=== PATIENT | male | born 1955 | race Caucasian/White ===

== ENCOUNTER 2018-11-20 10:19 | Inpatient (IN) | payer OTHER ==
[~2018-11-20] VITALS: Ht 182.9 cm; Wt 90.7 kg
[2018-11-20 10:19] VITALS: BP 101/37
[2018-11-20] MEDS ORDERED: BENICAR20 MG PO (10:33)
[2018-11-20] MEDS ORDERED: COLESTIPOL HCL1 G1 PO ×2 (10:34→14:14)
[2018-11-20] MEDS ORDERED: FLOMAX0.4 MG PO (10:34)
[2018-11-20] MEDS ORDERED: FINASTERIDE5 MG PO (10:34)
[2018-11-20] MEDS ORDERED: B12INJ IM (10:34)
[2018-11-20] MEDS ORDERED: FISH OIL 1,001000 M2 PO (10:35)
[2018-11-20] MEDS ORDERED: VITAMIN D1000 UNI1 PO (10:35)
[2018-11-20] MEDS ORDERED: CENTRUM SILVER1 EAC2 PO (10:36)
[2018-11-20 10:55] LABS: ABSOLUTE NEUTROPHILS 6.2 thou/uL (1.4-8.2); BASOPHILS 0.4 % (0.0-2.0); EOSINOPHILS 0.8 % (0.0-3.0); HEMATOCRIT 41.3 % (42.0-52.0); HEMOGLOBIN 14.1 gm/dL (14.0-18.0); LYMPHOCYTES 12.2 % (24.0-44.0); MCH 33.7 pg (26.0-34.0); MCHC 34.2 g/dL (28.0-37.0); MCV 98.5 fL (80.0-100.0); MONOCYTES 4.2 % (1.0-8.0); PLATELET COUNT 170 thou/uL (150-400); POLYS 82.4 % (36.0-66.0); RBC 4.19 mil/uL (4.50-6.00); RDW 13.2 % (10.5-14.5); WBC 7.6 thou/uL (4.0-11.0)
[2018-11-20 11:02] LABS: ANION GAP 10 mmol/L (7-16); BUN 19 mg/dL (7-18); CALCIUM 9.1 mg/dL (8.5-10.1); CHLORIDE 106 mmol/L (98-107); CO2 24 mmol/L (21-32); CREATININE 1.6 mg/dL (0.7-1.3); GLUCOSE 141 mg/dL (74-106); POTASSIUM 4.9 mmol/L (3.5-5.1); SODIUM 140 mmol/L (136-145)
[2018-11-20 11:11] LABS: ALBUMIN 3.1 g/dL (3.4-5.0); SGOT 13 U/L (15-37); SGPT 16 U/L (30-65); TOTAL BILIRUBIN 0.4 mg/dL (<0.1-1.0); TOTAL PROTEIN 6.4 g/dL (6.4-8.2); TROPONIN-I <0.06 ng/mL (<0.06)
--- NOTE | 2018-11-20 13:53 | NUR ---
PHARMACIST AT BEDSIDE COMPLETING MED RECONCILIATION.
--- NOTE | 2018-11-20 15:02 | EKG ---
[address] [address] ELECTROCARDIOGRAM REPORT Name: MELITON PARKINSON Room #: 170-23 ADM IN M.R.#: [id number] ������������������ Admission: 11/20/18 ������������������ Attend Phys: Esteban Reis MD Discharge: ������������������ Date of : 57 Report #: [id number] ����������������������������������������������������������������� [id number] THIS REPORT FOR: //name// [facility] ED Test Date: 2018-11-20 Test Time: 10:27:46 Pat Name: MELITON PARKINSON Department: Room: 170 Gender: M Maturity Checker: FRITZ : 1955 Requested By: Freddy Killian Order Number: [id number] MD: Omi Beltran Measurements Intervals [place] Rate: 57 P: [place]: QRS: -7 QRSD: 150 T: 41 QT: 450 QTc: 439 Interpretive Statements Sinus bradycardia. Right bundle branch block No previous ECG available for comparison Electronically Signed On 11-20-2018 15:02:26 TRANSCRIPT CLERK by Omi Beltran [email or web address] ��������������������������������������������� <ELECTRONICALLY SIGNED> ���������������������������������������� By: Omi Beltran MD ��������������������������������������������� 11/20/18 1502 1027 26 Omi Beltran MD /UMER
[2018-11-20 16:29] VITALS: BP 114/63
[2018-11-20 17:02] VITALS: BP 119/68
[2018-11-20 17:10] VITALS: BP 143/63
--- NOTE | 2018-11-20 19:46 | NUR ---
PATIENT TO ROOM AT 1730. ORIENTED X 4. NO COMPLAINTS OF PAIN OR NAUSEA. LOW FALL RISK. RA. WILL GET STRESS TEST IN AM AND THEN POSSIBLE DISCHARGE HOME. SR WITH BBB
[2018-11-20 19:53] VITALS: BP 137/70
[2018-11-20 23:07] LABS: GLYCOHEMOGLOBIN (HGB A1C) 5.6 % (4.8-5.6)
[2018-11-21 00:19] VITALS: BP 120/58
--- NOTE | 2018-11-21 01:45 | NUR ---
ASSESSMENTS CHARTED. PATIENT NPO SINCE MIDNIGHT IN PREP FOR STRESS TEST IN MORNING AFTER HAVING SYNCOPAL EPISODE AT THE GYM.
[2018-11-21 04:27] LABS: BASOPHILS 0.4 % (0.0-2.0); EOSINOPHILS 2.4 % (0.0-3.0); HEMATOCRIT 38.1 % (42.0-52.0); LYMPHOCYTES 24.9 % (24.0-44.0); MCH 33.2 pg (26.0-34.0); MCV 97.6 fL (80.0-100.0); MONOCYTES 6.7 % (1.0-8.0); PLATELET COUNT 166 thou/uL (150-400); POLYS 65.6 % (36.0-66.0); RBC 3.91 mil/uL (4.50-6.00); RDW 13.1 % (10.5-14.5)
[2018-11-21 04:36] LABS: CALCIUM 8.6 mg/dL (8.5-10.1); CREATININE 1.1 mg/dL (0.7-1.3); MAGNESIUM 2.1 mg/dL (1.8-2.4)
[2018-11-21 04:37] LABS: CHOLESTEROL 142 mg/dL (<200); HDL CHOLESTEROL 43 mg/dL (>40); LDL CHOLESTEROL 67 mg/dL (<100); TC:HDL 3.3 Ratio (Not establshd); TRIGLYCERIDE 164 mg/dL (<150); VLDL 33 mg/dL (<40)
[2018-11-21 04:42] LABS: POTASSIUM 3.9 mmol/L (3.5-5.1); SERUM ASSESSMENT Slight Lipemia
[2018-11-21 05:50] VITALS: BP 146/67
[2018-11-21 07:30] VITALS: BP 141/67
--- NOTE | 2018-11-21 08:14 | EKG ---
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: : 1955 Requested By: Hanna Roldan Order Number: [id number] MD: Donny Loza Measurements Intervals [place] Rate: 49 P: 75 [place]: 172 QRS: -25 QRSD: 154 T: 27 QT: 477 QTc: 431 Interpretive Statements Sinus bradycardia Right bundle branch block Cannot rule out Inferior infarct, old Compared to ECG 11/20/2018 10:27:46 No significant change was found Electronically Signed On 11-21-2018 8:14:32 V/[employer] SIGNAL OFFICER by Donny Loza [email or web address] ��������������������������������������������� <ELECTRONICALLY SIGNED> ���������������������������������������� By: Donny Loza MD, [facility] ��������������������������������������������� 11/21/18 0814 0645 [id number] Donny Loza MD, [facility] /EPI
--- NOTE | 2018-11-21 08:31 | NUR ---
ASSUMED PATIENT CARE THIS AM. PATIENT LYING IN BED, A&O. ROOM AIR. UP AD JUNIOR. NO N/V, N/T OR PAIN STATED. PATIENT OFF UNIT AT THIS TIME FOR ECHO AND STRESS TEST. PER DR. ALBERTO, PATIENT MAY DISCHARGE IF STRESS TEST IS NEGATIVE.
--- NOTE | 2018-11-21 09:38 | 2DMMODE ---
[facility] [address] [place] [address] 2 D/M-MODE ECHOCARDIOGRAM Name: MELITON PARKINSON Jena Room #: 206-P ADM IN .R.#: [id number] ������������� Admission: 11/20/18 ������������� Attend Phys: Esteban Reis MD Discharge: ��� ������������� ��� Date of : 57 Date of Service: 11/21/18 0938 �� Report #: [id number] �������� ��������������������������������������������[id number] THIS REPORT FOR: //name// APPROVED REPORT Study performed: 11/21/2018 08:44:54 EXAM: Comprehensive 2D, Doppler, and color-flow Echocardiogram Patient Location: Echo lab Room #: 206 Status: routine BSA: 2.13 HR: 55 bpm BP: 138/80 mmHg Rhythm: Bradycardia Other Information Study Quality: Good Indications Syncope Hypertension/HDD 2D Dimensions RVDd: 40.15 mm IVSd: 10.19 (7-11mm) LVOT Diam: 21.19 (18-24mm) LVDd: 55.92 mm PWd: 9.46 (7-11mm) Ascending Ao: 37.31 (22-36mm) LVDs: 36.26 (25-40mm) Aortic Root: 33.18 mm IVC: 16.00 mm Volumes Left Atrial Volume (Systole) Single Plane 4CH: 36.06 mL Single Plane 2CH: 66.11 mL LA ESV Index: 28.00 mL/m2 Aortic Valve AoV Peak Jose Maria.: 1.50 m/s AO Peak Gr.: 9.00 mmHg LVOT Max P.14 mmHg LVOT Max V: 1.02 m/s LARRY Vmax: 2.39 cm2 Mitral Valve E/A Ratio: 1.3 MV Decel. Time: 184.73 ms [facility] [email or web address] [place] [address] 2 D/M-MODE ECHOCARDIOGRAM Name: MELITON PARKINSON Room #: 206-[facility] IN ..#: [id number] ������������� Admission: 11/20/18 ������������� Attend Phys: Esteban Reis MD Discharge: ��� ������������� ��� Date of : 57 Date of Service: 11/21/18 0938 �� Report #: [id number] �������� ��������������������������������������������[id number] MV E Max Jose Maria.: 0.97 m/s MV A Jose Maria.: 0.73 m/s MV PHT: 53.57 ms IVRT: 101.50 ms Pulmonary Valve PV Peak Jose Maria.: 0.94 m/s PV Peak Gr.: 3.54 mmHg Pulmonary Vein P Vein S: 0.44 m/s P Vein A: 0.34 m/s P Vein D: 0.44 m/s P Vein A Dur.: 120.0 msec P Vein S/D Ratio: 1.00 Tricuspid Valve TR Peak Jose Maria.: 2.62 m/s TR Peak Gr.: 27.40 mmHg PA Pressure: 32.00 mmHg Left Ventricle The left ventricle is normal size. There is normal LV segmental wall motion. There is normal left ventricular wall thickness. Left ventricular systolic function is normal. The left ventricular ejection fraction is within the normal range. LVEF is 55-60%. The left ventricular diastolic function is normal. Right Ventricle Right ventricle is dilated. Right ventricle is hypokinetic. Atria The left atrium size is normal. Right atrium is dilated. Aortic Valve The aortic valve is normal in structure. No aortic regurgitation is present. There is no aortic valvular stenosis. Mitral Valve The mitral valve is normal in structure. Trace to mild mitral regurgitation. No evidence of mitral valve stenosis. Tricuspid Valve The tricuspid valve is normal in structure. There is mild tricuspid regurgitation. Estimated PAP 32 mmHg There is mild pulmonary hypertension[place] [address] 2 D/M-MODE ECHOCARDIOGRAM Name: MELITON PARKINSON Room #: 206-P [facility] IN .#: [id number] ������������� Admission: 11/20/18 ������������� Attend Phys: Esteban Reis MD Discharge: ��� ������������� ��� Date of : 57 Date of Service: 11/21/18 0938 �� Report #: [id number] �������� ��������������������������������������������[id number] The pulmonary valve is normal in structure. There is no pulmonic valvular regurgitation. Great Vessels The aortic root is normal in size. IVC is normal in size and collapses >50% with inspiration. Pericardium There is no pericardial effusion. <Conclusion> Left ventricular systolic function is normal. There is normal LV segmental wall motion. LVEF is 55-60%. Normal diastolic function Right ventricle is mildly dilated and hypokinetic. The aortic valve is normal in structure. No aortic regurgitation or stenosis The mitral valve is normal in structure. Trace to mild mitral regurgitation. There is mild tricuspid regurgitation. Estimated pulmonary artery pressure of 32 mmHg There is no pericardial effusion. ��������������������������������������������� <ELECTRONICALLY SIGNED> ���������������������������������������� By: Donny Loza MD, [facility] ��������������������������������������������� 11/21/18937 7 7 Donny Loza MD, FACC /INF
--- NOTE | 2018-11-21 09:59 | EXE ---
[facility] [place] [address] STRESS ECHOCARDIOGRAM Name: MELITON PARKINSON Room #: 206-P [facility] IN [facility]#: [id number] ������������� Admission: 11/20/18 ������������� Attend Phys: Esteban Reis MD Discharge: ��� ������������� ��� Date of : 57 Date of Service: 11/21/18 0959 �� Report #: [id number] �������� ��������������������������������������������[id number] THIS REPORT FOR: //name// APPROVED REPORT Study performed: 11/21/2018 09:04:56 Exam: Stress Echocardiogram Indication: Syncope, Hypertension Patient Location: Echo lab Stress Nurse: Kalee Nick RN Room #: 206 Status: routine Ht: 6 ft 0 in HR: 54 bpm BP: 138/80 mmHg Rhythm: Bradycardia Medical History Medical History: HTN Cardiac Risk Factors: HTN Exercise History: Physically active Procedure The patient underwent an Exercise Stress Test using the Chalo Protocol. Blood pressure, heart rate, and EKG were monitored. An Echocardiogram was performed by electroplating technician in four stages in quad fashion. At peak stress, four selected images were obtained and placed side by side with resting images for comparison. Stress Test Details Stress Test: Exercise stress testing was performed using a Chalo protocol. HR Resting HR: 54 bpm Max Heart Rate (APMHR): 158 bpm Max HR Achieved: 162 bpm Target HR (85% APMHR): 134 bpm % of APMHR: 102 Recovery HR: 88 bpm HR response to stress: Normal HR response to stress BP Resting BP: 138/80 mmHg Max BP: 186/70 mmHg Recovery BP: 142/64 mmHg BP response to stress: Normal blood pressure response to [facility] [address] [place] [address] STRESS ECHOCARDIOGRAM Name: MELITON PARKINSON Room #: 206-P [facility]#: [id number] ������������� Admission: 11/20/18 ������������� Attend Phys: Esteban Reis MD Discharge: ��� ������������� ��� Date of : 57 Date of Service: 11/21/18 0959 �� Report #: [id number] �������� ��������������������������������������������[id number] stress. ECG Resting ECG: Sinus Rhythm, RBBB Stress ECG: Sinus Rhythm, nonspecific ST-T abnormalities ST Change: Non-ischemic Clinical Reason for Termination: Maximal effort Exercise duration: 11 min 31 sec Highest Stage Achieved: Stage 4: 4.2 mph at 16% grade. Exercise capacity: 13.7 METs Pre-Stress Echo The resting Echocardiogram showed normal left ventricular contractility with an estimated Ejection Fraction of about >55%. Normal wall motion in all segments on baseline images. Post-Stress Echo The stress Echocardiogram showed normal left ventricular contractility with an estimated Ejection Fraction of about >70%. Normal augmentation of wall motion in all segments on post stress images. Clinical Normal augmentation of myocardial wall segments using a 17 segment model. No clinical or ECG evidence for ischemia. Conclusion Clinical Response: Non-ischemic Exercise Capacity: Above average Stress ECG Response: Non-ischemic Stress Echo Images: Non-ischemic The left ventricle is normal in size and wall thickness in both the rest and stress images. No prior study available for comparison. Other Information Study Quality: Adequate <Conclusion> [facility] [address] [email or web address] [address] STRESS ECHOCARDIOGRAM Name: MELITON PARKINSON Jena Room #: 206-P ADM IN ..#: [id number] ������������� Admission: 11/20/18 ������������� Attend Phys: Esteban Reis MD Discharge: ��� ������������� ��� Date of : 57 Date of Service: 11/21/18958 �� Report #: [id number] �������� ��������������������������������������������[id number] The left ventricle is normal in size and wall thickness in both the rest and stress images. ��������������������������������������������� <ELECTRONICALLY SIGNED> ���������������������������������������� By: Rufus Seo MD ��������������������������������������������� 11/21/18958 8 8 Rufus Seo MD /INF
--- NOTE | 2018-11-21 13:28 | NUR ---
ASSUMED PATIENT CARE THIS AM. PATIENT LYING IN BED, A&O. ROOM AIR. UP AD JUNIOR. NO N/V, N/T OR PAIN STATED. PLAN TO DISCHARGE HOME.
[2018-11-21] MEDS ORDERED: BENICAR 5 MG5 M1 PO (13:31)
[2018-11-21 14:38] VITALS: BP 141/67
== END 2018-11-21 16:00 | disposition home or self-care (01) | DRG 682 ==
LOC: ER 10:19 → EROBS 13:57 → 2N 13:57
PROVIDERS: Nurse Practitioner; ADMIT Hospitalist
DX: N17.9 Acute kidney failure, unspecified (principal); E43 Unspecified severe protein-calorie malnutrition; K50.90 Crohn's disease, unspecified, without complications; E86.0 Dehydration; I95.9 Hypotension, unspecified; N40.0 Benign prostatic hyperplasia without lower urinary tract symptoms; R73.9 Hyperglycemia, unspecified; E78.5 Hyperlipidemia, unspecified; I10 Essential (primary) hypertension; Z90.49 Acquired absence of other specified parts of digestive tract; Z85.820 Personal history of malignant melanoma of skin; Z79.899 Other long term (current) drug therapy; Z88.8 Allergy status to other drugs, medicaments and biological substances
CPT/HCPCS: 10081